=== PATIENT | female | born 1980 | race Caucasian/White ===

== ENCOUNTER 2016-10-21 23:17 | Inpatient (IN) | payer OTHER ==
[~2016-10-21] VITALS: Ht 170.2 cm; Wt 111.1 kg
[~2016-10-21 23:17] MED LIST: IBUPROFEN800 MG PO
--- NOTE | 2016-10-22 00:12 | History & Physical ---
General Information and HPI MD Statement: I have seen and personally examined FREDY DE JESUS and documented this H&P. The patient is a 36 year old female at [40] weeks and [5] days gestation who presented with a chief complaint of [labor]. Source of Information: patient Exam Limitations: no limitations History of Present Illness: 36-year-old 4 para 1021 at 40 weeks and 5 days gestation presents in active labor. is remarkable for history of gastric bypass the patient has undergone serial growth scans in her third trimester, shows a has a history of anxiety and has been off her Zoloft and Wellbutrin during her . 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 13 oz. in 2014 Past Pregnancies Past Pregnancies: Date of Delivery: 2014 Gestational Age: 37 weeks Length of Labor: Premature rupture of membranes at 37 weeks Type of Delivery: vaginal Anesthesia: None Place of Delivery: [facility] Medical History Blood Transfusion Hx: No Neurological: NONE EENT: NONE Cardiovascular: NONE Respiratory: NONE Gastrointestinal: NONE Hepatic: NONE Renal: NONE Musculoskeletal: NONE Psychiatric: anxiety, depression Endocrine: NONE Blood Disorders: NONE (history of iron infusion in ), anemia PLANNING RN/Reproductive: NONE Surgical History Pertinent Surgical History: none (gastric bypass) Review of Systems Review of Systems Constitutional: Reports: no symptoms. Cardiovascular: Reports: no symptoms. Respiratory: Reports: no symptoms. GI: Reports: no symptoms. Genitourinary: Reports: see HPI. Musculoskeletal: Reports: no symptoms. Skin: Reports: no symptoms. Neurological/Psychological: Reports: no symptoms. All Other Systems: Reviewed and Negative Exam & Diagnostic Data Obstetric Exam Wgt Gained During : 40 pounds Pelvimetry: Proven to 5 lbs. 13 oz. Dilation (cm): 5 Effacement (%): 80 Station: -2 Membranes: intact Fluid: unknown Fundal Height (cm): 40 Multiple Gestation? No Contractions: Every 9 minutes #1 - FHR Baseline: 110 Category: 1 Estimated Weight: 8 pounds Presentation: Vertex Patient for Induction? No Physical Exam General Appearance Alert, Oriented X3, Cooperative, Moderate Distress Cardiovascular Regular Rate, Normal S1, Normal S2 Lungs Normal Air Movement Abdomen gravid Reproductive (FEMALE) Normal female genitalia Labs Blood Type & Rh: A+ Antibody Screen: negative Hct/Hgb & Platelets #1: 13, 39, 267 Hct/Hgb & Platelets #2: 12, 36.8, 238 Rubella: Immunity VDRL #1: negative VDRL #2: negative HbsAg: negative HIV #1: negative HIV #2 negative 1 Hr P Group B Strep: negative Initial Ultrasound: 10 weeks and 2 days Anatomy Ultrasound: 21 weeks and 1 day, normal anatomy, size equal dates Genetic Testing: Negative cystic fibrosis, normal hemoglobin electrophoresis, negative MSAFP, Assessment/Plan Assessment/Plan: This patient is a 36-year-old 4 para 1 at 40 weeks and 5 days who presents in active labor. Her has been relatively uncomplicated. She has a history of a gastric bypass in the past as well as an SGA baby in the past that was 5 lbs. 13 oz. at 37 weeks And was followed serial growth scans. Scans have been appropriate, she also relates history of anxiety and depression past but has not been on medications during this . heart rate tracing is reassuring. Plan active management of labor. Plan Stadol 1 mg IV 1 now followed by epidural as needed. Anticipate vaginal delivery. Will follow for signs of depression and anxiety. As Ranked By This Provider Problem List: 1. Core Measures/Miscellaneous Venous Thromboembolism VTE Risk Factors: / VTE Contraindications: No Contraindications VTE Diagnosis: No Beta Chung Is Beta Chnug a Home Med? No Antibiotics Is Patient on Antibiotics? No Attending MD Review Statement Attending Statement Attending MD Statement: examined this patient, discussed with family, discussed w/nursing
[2016-10-22 00:35] LABS: ABSOLUTE BASOPHIL COUNT 0 /CUMM (0.0-0.2); ABSOLUTE EOSINOPHIL COUNT 0.1 /CUMM (0.0-0.7); ABSOLUTE GRANULOCYTE CT 7.4 /CUMM (1.4-6.5); ABSOLUTE LYMPH COUNT 2.1 /CUMM (1.2-3.4); ABSOLUTE MONOCYTE COUNT 0.7 /CUMM (0.10-0.60); BASOPHIL % 0.4 % (0.0-2.0); EOSINOPHIL % 1.1 % (0-5); GRANULOCYTE % 71.6 % (42.2-75.2); HEMATOCRIT 39.5 % (37-47); MEAN CORPUSCULAR HGB 30.3 PG (27.0-31.0); MEAN CORPUSCULAR HGB CONC 34.7 G/DL (33.0-37.0); MEAN CORPUSCULAR VOLUME 87.4 FL (81.0-99.0); MEAN PLATELET VOLUME 7.9 FL (7.4-10.4); PLATELET COUNT 223 /CUMM (130-400); RBC DISTRIBUTION WIDTH 15.4 % (11.5-14.5); RED BLOOD CELL CT 4.51 /CUMM (4.20-5.40); WHITE BLOOD CELL COUNT 10.3 /CUMM (4.8-10.8)
--- NOTE | 2016-10-22 04:57 | Labor & Delivery Summary ---
See Addendum Delivery Summary Vaginal Delivery: Vaginal: spontaneous Episiotomy/Lacerations: Episiotomy/Lacerations: SMALL VAGINAL ABRASION AT 7 O'CLOCK Type: 1STDEGREE Repair: 3-0 POLYSORB. FIGURE OF EIGHT X 1 Anesthesia: EPIDURAL Placenta: Placenta: spontanteous, normal, 3 vessel Anesthesia: none Apgars - 1 Min: 9 Apgars - 5 Min: 9 Additional Comments: RN NOTIFIED ME THAT PT IS FULLY, HAD SPONTANEOUSLY RUPTURED. PUSHED X 1 AND BASELINE CHANGED FROM 110S TO 90S. UPON MY ARRIVAL, FHR 90S. EXAM: FULLY/ +3. HAD PATIENT PUSH X 1 CONTRACTION AND DELIVERED HEAD AND ANTERIOR SHOULDER WITHOUT DIFFICULTY. REMAINDER OF DELIVERED ATRAUMATICALLY. GOOD CRY NOTED. DRIED AND STIMULATED AND BULB SUCTIONED. PLACED ON MATERNAL ABDOMEN AND CORD CLAMPED AND CUT. SMALL VAGINAL MUCOSAL ABRASION REPAIRED WITH FIGURE OF EIGHT SUTURE X 1
[2016-10-22 05:32] VITALS: BP 124/74
[2016-10-23 08:49] LABS: ABSOLUTE BASOPHIL COUNT 0 /CUMM (0.0-0.2); ABSOLUTE EOSINOPHIL COUNT 0.1 /CUMM (0.0-0.7); ABSOLUTE GRANULOCYTE CT 6.3 /CUMM (1.4-6.5); ABSOLUTE LYMPH COUNT 1.9 /CUMM (1.2-3.4); ABSOLUTE MONOCYTE COUNT 0.5 /CUMM (0.10-0.60); BASOPHIL % 0.3 % (0.0-2.0); EOSINOPHIL % 1.4 % (0-5); HEMATOCRIT 36.2 % (37-47); MEAN CORPUSCULAR HGB 30.6 PG (27.0-31.0); MEAN CORPUSCULAR HGB CONC 34.4 G/DL (33.0-37.0); MEAN CORPUSCULAR VOLUME 88.8 FL (81.0-99.0); MEAN PLATELET VOLUME 7.7 FL (7.4-10.4); PLATELET COUNT 205 /CUMM (130-400); RBC DISTRIBUTION WIDTH 15.5 % (11.5-14.5); RED BLOOD CELL CT 4.08 /CUMM (4.20-5.40); WHITE BLOOD CELL COUNT 8.9 /CUMM (4.8-10.8)
[2016-10-23] MEDS ORDERED: PRENATAL TABLE1 EAC2 PO (11:42)
[2016-10-23] MEDS ORDERED: IBUPROFEN800 M1 PO (11:49)
--- NOTE | 2016-10-23 12:32 | PN- Post Delivery/GYN ---
Subjective Subjective: DOING WELL PP WANTS TO STAY TO PPD #2 DECLINES CIRC FOR HER SON Review of Systems: NEG FOR CARDIAC PULMONARY GI COMPLAINTS Objective Last 24 Hrs of Vital Signs/I&O AFEBRILE VSS Physical Exam General Appearance Alert, Oriented X3, Cooperative, No Acute Distress Cardiovascular Regular Rate Lungs Normal Air Movement Abdomen Normal Bowel Sounds, Soft, No Tenderness, No Hepatospenomegaly, UTERUS MIDLINE FIRM NONTENDER 3 FB BELOW UMBILICUS Neurological Normal Gait, Normal Speech Reproductive (FEMALE) Normal female genitalia, AVGE LOCHIA Current Medications: Current Medications Sig/Kelly Start time Last Medication Dose Route Stop Time Status Admin Acetaminophen 650 MG Q4P PRN 10/22 0500 AC 10/22 PO 1624 Butorphanol Tartrate 1 MG Q4P PRN 10/22 0015 AC 10/21 IV 2355 Docusate Sodium 100 MG BID PRN 10/22 0500 AC PO Hydroxyzine HCl 50 MG AT BEDTIME NEED.. 10/22 0500 AC PO Lactated Ringer's 1,000 ML Q8H 10/22 0045 AC 10/22 IV 0037 Oxycodone/ 1 TAB Q3P PRN 10/22 0500 AC Acetaminophen PO Senna 374 MG AT BEDTIME NEED.. 10/22 0500 DC PO 10/23 0501 Last 24 Hrs of Labs/Jono: Laboratory Tests 10/23/16 0810: CBC w Diff NO MAN DIFF REQ, RBC 4.08 L, MCV 88.8, MCH 30.6, RDW 15.5 H, MPV 7.7, Gran % 71.0, Lymphocytes % 21.5, Monocytes % 5.8, Eosinophils % 1.4, Basophils % 0.3, Absolute Granulocytes 6.3, Absolute Lymphocytes 1.9, Absolute Monocytes 0.5, Absolute Eosinophils 0.1, Absolute Basophils 0, PUBS MCHC 34.4 Assessment/Plan Assessment/Plan STABLE PPD#1 DOING WELL DECLINES CIRC FOR HER SON PLAN REG DIET - FULL AMBULATION Problem List: 1. 2. Term of male Attending MD Review Statement Attending Statement Attending MD Statement: examined this patient, reviewed EMR data (avail), discussed with nursing Attending Assessment/Plan: Luis Enrique LOPEZ MD
--- NOTE | 2016-10-24 08:54 | PN- OBGYN ---
Surgical Brief Attending Note Brief Attending Note: PPD#2 pt is resting in bed, no complaints, tolerate diet, void without difficulties. ambulating well. PE: VSS CV RRR lungs CTA B/L Abdomen: soft, nontender, uterus firm fundus below umbilicus. lochia mild Ext: DCT (-) A/P: 36 yo, s/p NSBVD, PPD #2 1. encourage ambulation, encourage . 2. RT PP care 3. will d/c home, f/u in office in 2 wks and 6 wks.
== END 2016-10-24 10:41 | DRG 775 ==
LOC: CBCO 23:17 → GNO 23:54
PROVIDERS: ADMIT Obstetrics & Gynecology
PROC: 0HQ9XZZ Repair Perineum Skin, External Approach (ICD-10-PCS; principal; 2016-10-22)
PROC: 10E0XZZ Delivery of Products of Conception, External Approach (ICD-10-PCS; principal; 2016-10-22)
DX: O76 Abnormality in fetal heart rate and rhythm complicating labor and delivery (principal); O71.82 Other specified trauma to perineum and vulva; Z3A.40 40 weeks gestation of pregnancy; Z37.0 Single live birth
CPT/HCPCS: GNOP; GNOS; 36415; 81001; J2210; J2405; J7120